=== PATIENT | male | born 1940 | race Caucasian/White ===

== ENCOUNTER → 2017-06-01 | Outpatient (CLI) | payer MEDICARE, OTHER ==
[~2017-06-01] MED LIST: ASPIRIN EC81 MG PO; CO Q-10200 MG PO; CRANBERRY TABL1 EACH PO; FISH OIL 1,0001 EAC1 PO; FLOMAX0.4 MG PO; METAMUCIL PACKE1 PKT PO; MULTIVITAMINS1 EAC2 PO; PLAVIX75 MG PO; PRAVASTATIN SOD40 MG PO; PRILOSEC20 MG PO; PROTONIX40 MG PO; TOPROL XL 5050 MG PO; VASOTEC2.5 MG PO
[2017-06-01 14:05] LABS: CPK 78 IU/L (35-332)
== END | disposition disaster alternative care site (69) ==
LOC: LNHI 13:46
PROVIDERS: Internal Medicine Interventional Cardiology
DX: R07.9 Chest pain, unspecified (principal)

== ENCOUNTER 2017-06-02 09:53 | Outpatient (CLI) | payer MEDICARE, OTHER ==
[~2017-06-02] VITALS: Ht 179.1 cm; Wt 77.7 kg
--- NOTE | ~2017-06-02 | CATH ---
Cardiac Diagnostic + PCI Report Demographics Patient Name PALOMA GOODWIN Gender Male L Date of 1940 Age 77 year(s) Patient Number [id number] Date of Study 06/02/2017 Visit Number [id number] Room Number G6[address] [place] [id number] Ht 179 cm Wt 77.7 kg Referring [facility] Primary Physician Physician Emely CERVANTES Performing [facility] Secondary Physician Physician Emely CERVANTES Diagnostic [facility] Assisting Physician Physician Emely CERVANTES Interventional [facility] Physician Print Line Supervisor Physician Emely CERVANTES Findings and Conclusions Diagnostic Findings and Conclusion 1 vessel CAD, critial lesion in mid Cx, 95% stenosis, with symptoms of unstable angina, in the past 2 weeks. Medical therapy for mid LAD 40% stenosis. Diagnostic Recommendations PCI of mid Cx Interventional Findings and Conclusion s/p ESTHER to mid Circ using promus 2.25/16 with excellent results. Interventional Recommendations DAPT x 1 yr Patient will be observed overnight. Continue current medications. Hydration and followup creatinine. Patient has been instructed to not lift anything more than 5 pounds for 1 week. Aggressive medical therapy for coronary artery disease. ASA. Statin. Beta Neema. Edenilson Inhibitor. Aggressive control of blood pressure. Optimization of medical therapy as an outpatient. Cardiac diet . Referral to Cardiac Rehabilitation now and at discharge . I would like to thank Dr. Hoang for the opportunity to participate in the care of Mr. Harmon . Procedure Description The patient was brought to the diagnostic cardiac catheterization-EP laboratory in the fasting, non-sedated state. Informed consent was obtained in the written and verbal form after the risks and benefits were explained. The patient had no further questions and agreed to proceed. The planned puncture-incision site(s) were shaved and prepped with ChloraPrep and draped in the usual sterile manner. Conscious sedation, supplemental oxygen, and pain control medications were delivered by a registered nurse under physician guidance. Surface ECG rhythm, blood pressure measurement, and pulse oximetry were monitored throughout the procedure. Arterial access. The access site was infiltrated with lidocaine. The vessel was entered with the Seldinger technique. A sheath was advanced into the vessel and used for catheter placement. Selective left coronary angiography. A catheter was advanced into the left coronary vessel ostium under Fluoroscopic guidance. Contrast was injected by hand. Images were obtained in multiple projections. Selective right coronary angiography. A catheter was advanced into the right coronary vessel ostium under fluoroscopic guidance. Contrast was injected by hand. Images were obtained in multiple projections. Stent Placement: A guiding catheter was used to intubate the vessel. A 0.14 wire was used to cross the lesion. A Drug Eluting Stent was placed. Post placement angiograms were performed. Arterial artery hemostasis was achieved. The patient was transferred to a regular nursing floor via cart accompanied by a nurse. The patient left the laboratory in stable condition. Diagnostic Cath Status: Elective Interventional Cath Status: Urgent Procedure Procedure Type Diagnostic procedure:Angiography:, Coronary Angios PCI procedure:Drug Eluting Coronary Stent:, OM Indications: Chest pain and Unstable angina. The procedure was explained in detail to the patient. Risks, complications and alternative treatments were reviewed. Written consent was obtained. Medications Reviewed with Patient prior to Procedure. Angiographic Findings Dominance: Right Cardiac Arteries and Lesion Findings LMCA: Normal (0% Stenosis). LAD: Abnormal.mid 40% calcified Diag 30% Lesion on Mid LAD: Mid subsection.40% stenosis . Lesion on 1st Diag: Proximal subsection.30% stenosis . LCx: Abnormal.mid circ 95% OM 20% Lesion on Mid CX: Proximal subsection.95% stenosis 16 mm length reduced to 0%. Pre procedure AMRITA II flow was noted. Post Procedure AMRITA III flow was present. The guidewire cross was successful.A poor run off was present.The lesion was diagnosed as a moderate risk lesion.Culprit lesion. Devices used - Runthrough NS .014 x 180. Number of passes: 1. - Fielder FC 180 cm. Number of passes: 1. - Emerge Balloon 2.0 x 12. 1 inflation(s) to a max pressure of: 8 susanne. - Promus Premier 2.25 x 16 Stent. 2 inflation(s) to a max pressure of: 11 susanne. Lesion on 1st Ob Nelida: Proximal subsection.20% stenosis . RCA: Abnormal.mid 20% PL and PDA wnl Lesion on Mid RCA: Mid subsection.20% stenosis . Coronary Tree Procedure Data Procedure Date Date: 06/02/2017Start: 01:11 PMEnd: 01:49 PM Entry Locations - Retrograde Percutaneous access was performed through the Right Radial artery (Primary location). A 6 Fr sheath was inserted. Hemostasis was successfully obtained using Mechanical Compression. Closure Comments: 14 cc air in r band deployed by Procedure Medications Order and Administration + + + + + !Time !Medication !Dosage !Route ! + + + + + !06/02/2017 01:08 !Versed !1 mg !I.V. ! !PM ! ! ! ! + + + + + !06/02/2017 01:10 !Fentanyl !50 mcg !I.V. ! !PM ! ! ! ! + + + + + !06/02/2017 01:12 !Versed !1 mg !I.V. ! !PM ! ! ! ! + + + + + !06/02/2017 01:13 !Radial Verapamil !2.5 mg !I.A. ! !PM ! ! ! ! + + + + 06/02/2017 01:22 !Heparin (ACC_3) !5000 units !I.V. bolus ! !PM ! ! ! ! + + + + + !06/02/2017 01:27 !Angiomax (Bivalirudin) !60 mg !I.V. bolus ! !PM !(ACC_5) ! ! ! + + + + + 06/02/2017 01:29 !Angiomax (Bivalirudin) !1.75 mg/kg/hr!I.V. drip ! !PM !(ACC_5) ! ! ! + + + + 06/02/2017 01:44 !Brilinta (Ticagrelor) !180 mg !P.O. ! !PM !(ACC_20) ! ! ! + + + + + Devices Used - A5 Fr. BS JR 4 Diag. Catheterwas used for:Right coronary angiography. - A6 Fr. JJ 3DRC Diag. Catheterwas used for:Right coronary angiography. - A5 Fr. BS JL 3.5 Diag. Catheterwas used for:Was not used. - A6 Fr. EBU 3.5 Guide Catheterwas used for:Left coronary angiography. Contrast Material - Isovue 516376 ml Fluoroscopy Time: Diagnostic: 11:36 minutes. Total: 11:36 minutes. Fluoroscopy Dose: Diagnostic: 1109 mGy. Total: 1109 mGy. Estimated Blood Loss: 15 ml. Additional [facility] PCI Information PCI Indication:PCI for high risk Non-STEMI or unstable angina. Medical History Allergies - No known allergies. Risk Factors The patient risk factors include:physical activity, hypercholesterolemia, hypertension, family history of premature CAD, last creatinine: 1.2 mg/dl, creatinine clearance: 57.56 ml/min, dyslipidemia and former tobacco use. Admission Data Admission Date: 06/02/2017 Admission Time: 09:53 AM Admit Source: Other Insurance Payors: Medicare. Admission Medications + +------+------+ + + + + !Medication !Dosage!Times !Last !Last !Administered !Comments ! ! ! !Per !Delivery !Delivery ! ! ! ! ! !Day !Date !Time ! ! ! + +------+------+ + + + + !Aspirin ! ! ! ! ! ! ! !(any) ! ! ! ! ! ! ! + +------+------+ + + + + !Beta ! ! ! ! ! ! ! !Neema ! ! ! ! ! ! ! !(any) ! ! ! ! ! ! ! + +------+------+ + + + + !Statin ! ! ! ! ! ! ! !(any) ! ! ! ! ! ! ! + +------+------+ + + + + Clinical Evaluation Leading to Procedure - The patient's CAD presentation was assessed as: Unstable angina. 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 Anti-anginal medications were prescribed during the past two weeks. The medications are: Beta Blockers and Ranolazine. - The patient has been in a state of heart failure within the past two weeks. - The patient's heart failure status was assessed as NYHA Class II. Hemodynamics Condition: Rest O2 Consumption: Estimated: 217.73Heart Rate: 60 bpm Pressures (mmHg) +-----+ + !Site !Pressure ! +-----+ + !AO !150/73 (104) ! +-----+ + Shunts Oxygen Values O2 Consumption 217.73 Signatures dtt: EMELY ARREAGA dtd: 06/02/17 1311 Physician Self Edit
[~2017-06-02 09:53] MED LIST changes: -PLAVIX75 MG PO; -PROTONIX40 MG PO; -VASOTEC2.5 MG PO
[2017-06-02 10:51] LABS: INR - (THERAPEUTIC) 0.98 (0.92-1.07); PROTIME 10.3 SECONDS (9.8-11.4)
[2017-06-02 10:57] LABS: ALBUMIN 3.8 gm/dL (3.5-5.0); ANION GAP 10.1 (10.0-19.0); CALCIUM 8.5 mg/dL (8.5-10.5); CREATININE 1.2 mg/dL (0.6-1.3); POTASSIUM 4.1 mMol/L (3.7-5.1); TOTAL BILIRUBIN 0.6 mg/dL (0.0-1.5); TOTAL PROTEIN 7.4 g/dL (6.0-8.4)
[2017-06-02 15:03] LABS: CPK 64 IU/L (35-332)
[2017-06-02 21:01] LABS: CPK 66 IU/L (35-332)
[2017-06-03 07:01] LABS: ALBUMIN 3.3 gm/dL (3.5-5.0); CALCIUM 8.1 mg/dL (8.5-10.5); CREATININE 0.9 mg/dL (0.6-1.3); TOTAL BILIRUBIN 0.7 mg/dL (0.0-1.5); TOTAL PROTEIN 6.5 g/dL (6.0-8.4)
[2017-06-03] MEDS ORDERED: VASOTEC2.5 MG PO (12:44)
[2017-06-03] MEDS ORDERED: PROTONIX40 MG PO (12:45)
[2017-06-03] MEDS ORDERED: PLAVIX75 MG PO (12:47)
== END 2017-06-03 13:20 | disposition disaster alternative care site (69) ==
LOC: GPCU 09:53 → GPOC 09:53 → GPCU 14:05 → GPOC 06-03 13:20
PROVIDERS: Internal Medicine Interventional Cardiology
PROC: 4A023N7 Measurement of Cardiac Sampling and Pressure, Left Heart, Percutaneous Approach (ICD-10-PCS; principal; 2017-06-02)
PROC: B216YZZ Fluoroscopy of Right and Left Heart using Other Contrast (ICD-10-PCS; 2017-06-02)
PROC: 027034Z Dilation of Coronary Artery, One Artery with Drug-eluting Intraluminal Device, Percutaneous Approach (ICD-10-PCS; 2017-06-02)
DX: I25.110 Atherosclerotic heart disease of native coronary artery with unstable angina pectoris (principal); I10 Essential (primary) hypertension; I49.3 Ventricular premature depolarization; I44.0 Atrioventricular block, first degree; E78.00 Pure hypercholesterolemia, unspecified; E78.5 Hyperlipidemia, unspecified; R94.31 Abnormal electrocardiogram [ECG] [EKG]; Z82.49 Family history of ischemic heart disease and other diseases of the circulatory system; Z87.891 Personal history of nicotine dependence
CPT/HCPCS: C1725; C1769; C1874; C1887; C9600; J0583; J1644; J2001; J2250; J3010; J7030; J7060